=== PATIENT | male | born 1965 | race Caucasian/White ===

== ENCOUNTER 2016-12-07 04:46 | Inpatient (IN) | payer BC ==
[2016-12-07 05:54] LABS: BASOPHILS 0.1 % (0-2); EOSINOPHILS 0.7 % (0-7); HEMATOCRIT 32.2 % (42.0-54.0); HEMOGLOBIN 10.2 g/dL (13.5-17.5); IMMATURE GRANULOCYTES 0.2 % (0-5); LYMPHOCYTES 7.1 % (15-50); MCH 28.1 pg (26.0-34.0); MCHC 31.7 g/dL (31.0-37.0); MCV 88.7 fL (80.0-100.0); MEAN PLATELET VOLUME 9.4 fL (7.4-10.4); MONOCYTES 11.4 % (2-11); NEUTROPHILS 80.5 % (40-80); PLATELET COUNT 244 10x3/uL (130-400); RBC 3.63 10x6/uL (4.20-6.10); RDW 14.4 % (11.5-14.5); WBC 9.1 10x3/uL (4.8-10.8)
[2016-12-07 06:26] LABS: ALBUMIN 2.9 g/dL (3.4-5.0); ANION GAP 11.9 mmol/L (8-16); BILIRUBIN - TOTAL 0.7 mg/dL (0.2-1.3); CALCIUM 9.4 mg/dL (8.5-10.1); CARBON DIOXIDE 26.8 mmol/L (21.0-32.0); CREATININE - SERUM 1.1 mg/dL (0.6-1.3); POTASSIUM - SERUM 3.7 mmol/L (3.5-5.1); PROTEIN - SERUM 7.5 g/dL (6.4-8.2)
[2016-12-07 06:52] LABS: APPEARANCE CLOUDY (CLEAR); COLOR DK YELLOW (YELLOW); GLUCOSE NEGATIVE (NEGATIVE); KETONE NEGATIVE (NEGATIVE); NITRITE NEGATIVE (NEGATIVE); PROTEIN 2+ mg/dL (NEGATIVE); SPECIFIC GRAVITY 1.025 (1.005-1.020)
[2016-12-07 06:53] LABS: BILIRUBIN NEGATIVE (NEGATIVE); UROBILINOGEN NORMAL (NORMAL)
[2016-12-07 06:57] LABS: BACTERIA MODERATE /hpf (NONE SEEN); EPITHELIAL CELLS 0-5 /hpf (0-5); MUCUS <1+ /lpf (NONE SEEN); RED CELLS - URINE >50 /hpf (0-5); YEAST RARE /hpf (NONE SEEN)
--- NOTE | 2016-12-07 09:00 | NUR ---
ARRIVE TO ROOM VIA WHEELCHAIR. ALERT AND ORIENTED. AMBULATES TO BED GAIT STEADY. REPORTS QUITING SMOKING IN SEPTEMBER 2016. HAD STENT PLACED IN SCROTUM IN SEPTEMBER. MORPHINE HOME CARE PROVIDER STARTED PER ORDER. COMPLAINS OF FLANK PAIN. DENIES SOB. CONTINUE ADMISSION PROCESS. BED LOCKED AND LOW. CALL LIGHT IN REACH.
[2016-12-07] MEDS ORDERED: MORPHINE IMMEDI15 MG PO (09:04)
[2016-12-07] MEDS ORDERED: LEVAQUIN500 MG PO (09:04)
[2016-12-07] MEDS ORDERED: PERCOCET 5-3251 TAB PO (09:04)
[2016-12-07] MEDS ORDERED: HYDROCODONE-APA1 TAB PO (09:05)
[2016-12-07] MEDS ORDERED: ULTRAM50 MG PO (09:06)
[2016-12-07 11:47] VITALS: BP 135/87
[2016-12-07 12:55] VITALS: BP 143/87; BMI 25.5
--- NOTE | 2016-12-07 15:54 | NUR ---
ALERT AND ORIENTED X4. RESTING IN BED. AT BEDSIDE. EFRA CONSULTED PER FOR PORT PLACEMENT. [facility] CALLED FOR RECORDS TO BED FAXED. CONSENT FOR TRANSFER OF INFORMATION SIGNED. EXPRESSES NEED FOR SOMETHING TO RELAX. ATIVAN ORDERED 0.5mg Q 8HPRN IV. TABLE WORKER MORPHINE SWITCHED TO DILAUDID PER 'S ORDER. DENIES SOB. CONTINUE PLAN OF CARE. BED LOCKED AND LOW. CALL LIGHT IN REACH. TWO SIDERAILS UP. REFUSE SCDs. AMBULATORY. GAIT STEADY.
[2016-12-07 16:24] VITALS: BP 128/89
--- NOTE | 2016-12-07 17:14 | NUR ---
IN ROOM. PLAN TO PLACE INFUSAPORT 12/08/16.
[2016-12-07 18:09] LABS: % SATURATION 7 % (15-55); IRON 16 ug/dl (35-150); TOTAL IRON BIND CAPACITY 228 ug/dl (260-445); UNSAT IRON BIND CAPACITY 212 ug/dl (150-375)
--- NOTE | 2016-12-07 19:40 | NUR ---
CONSENTS SIGNED BY PT FOR POWER PORT PLACEMENT TO BE DONE BY DR BOLTON ON 12-08-16. CONSENTS WITTNESSED BY SECOND NURSE AND PLACED IN CHART.
[2016-12-07 20:46] VITALS: BP 126/85
--- NOTE | 2016-12-07 20:49 | NUR ---
ZOFRAN 4 MG GIVEN IV FOR C/O NAUSEA.
--- NOTE | 2016-12-07 22:34 | NUR ---
ATIVAN 0.5 MG GIVEN AT PT REQUEST TO ASSIST WITH REST.
[2016-12-08 00:46] VITALS: BP 142/88
--- NOTE | 2016-12-08 01:19 | NUR ---
ZOFRAN 4 MG GIVEN FOR C/O NAUSEA.
[2016-12-08 04:25] VITALS: BP 135/85; BP 141/77
--- NOTE | 2016-12-08 06:32 | NUR ---
PT RESTING IN BED WITH NO DISTRESS. CALL LIGHT IN REACH. CPOC.
[2016-12-08 08:04] VITALS: BP 136/82
[2016-12-08 10:00] VITALS: BMI 25.5
[2016-12-08 12:20] VITALS: BP 146/91
--- NOTE | 2016-12-08 12:27 | NUR ---
RETURN TO ROOM VIA BED FROM THE PROCEDURE. LT SUBCLAVIAN INFUSAPORT PLACED. ALREADY ACCESSED UPON ARRIVING TO ROOM. FAMILY AT BED SIDE. T-98.3, P-87, R-16, BP-146/91. RATES PAIN 12/07. RESTART IV FLUID AND TIE SAWYER DILAUDID ORDERED. CONTINUE PLAN OF CARE. BED LOCKED AND LOW. CALL LIGHT IN REACH. TWO SIDERAILS UP.
[2016-12-08 12:59] LABS: BASOPHILS 0.1 % (0-2); EOSINOPHILS 0.4 % (0-7); HEMATOCRIT 34.2 % (42.0-54.0); HEMOGLOBIN 10.8 g/dL (13.5-17.5); IMMATURE GRANULOCYTES 0.2 % (0-5); LYMPHOCYTES 9.4 % (15-50); MCH 28.2 pg (26.0-34.0); MCHC 31.6 g/dL (31.0-37.0); MCV 89.3 fL (80.0-100.0); MEAN PLATELET VOLUME 9.1 fL (7.4-10.4); MONOCYTES 12.1 % (2-11); NEUTROPHILS 77.8 % (40-80); PLATELET COUNT 200 10x3/uL (130-400); RBC 3.83 10x6/uL (4.20-6.10); WBC 8.1 10x3/uL (4.8-10.8)
--- NOTE | 2016-12-08 13:00 | NUR ---
REPORT GIVEN TO DAGO GARDNER TO RESUME PLAN OF CARE.
[2016-12-08 13:15] LABS: ALBUMIN 2.7 g/dL (3.4-5.0); ANION GAP 13.3 mmol/L (8-16); BILIRUBIN - TOTAL 1.2 mg/dL (0.2-1.3); CALCIUM 9.2 mg/dL (8.5-10.1); CARBON DIOXIDE 28.7 mmol/L (21.0-32.0); CREATININE - SERUM 1.1 mg/dL (0.6-1.3); PROTEIN - SERUM 7.5 g/dL (6.4-8.2)
--- NOTE | 2016-12-08 13:55 | NUR ---
PATIENT WANTS TO KEEP HIS NAUSEA AWAY, SO ZOFRAN IV PROVIDED. PATIENT IS AWAKE AND ALERT, HE IS JOKING, NO ISSUES. WILL GO FOR SCAN AROUND 1530.
[2016-12-08 15:31] VITALS: BP 147/93
--- NOTE | 2016-12-08 17:00 | NUR ---
NEW DILAUDID SYRINGE INFUSING NOW FOR PATIENT.
--- NOTE | 2016-12-08 18:15 | NUR ---
PATIENT ASKED "WHEN DID I HAVE THAT STOMACH MEDICINE LAST?" HE SAID HE JUST ATE AND HE'D LIKE TO HAVE MORE TO STAY ON TOP OF THE NAUSEA. WESTLEY ROJAS PROVIDED NOW SEE
[2016-12-08 19:00] VITALS: BP 151/90
--- NOTE | 2016-12-08 20:03 | NUR ---
PT AWAKE, ALERT, ORIENTED, C/O GREAT PAIN IN HIS BLADDER THAT RADIATES TO HIS BACK. PRN BOLUS OF DILAUDID GIVEN. PT DENIES ANY NAUSEA AT THIS TIME. PT TO CALL WITH ANY NEEDS. CONTINUE TO MONITOR CLOSELY. BED LOW, CALL LIGHT IN REACH, SIDE RAILS X 2, HOB 15 DEGREES. I HAVE ENCOURAGED PT TO USE A URINAL SO THAT WE CAN OBTAIN STRICT I & O'S. PT VERBALLY AGREED TO DO SO.
--- NOTE | 2016-12-08 23:54 | NUR ---
PT IS C/O CONSTIPATION, STATING IT HAS BEEN 3 DAYS OR LONGER SINCE HE HAS HAD A BM AND ASKING FOR A LAXATIVE. PT STATES EX-LAX IS THE ONLY THING THAT WORKS FOR HIM, AND STATES MIRALAX DOES NOT WORK AT ALL. I HAVE PAGED [employer] BUSHEL WORKER WEB DESIGNER, CARMEN RACHEL, FOR FURTHER ORDERS. PT ALSO JUST REQUESTED AND RECEIVED A PRN BOLUS OF DILAUDID FOR ABDOMINAL/BLADDER AND BACK PAIN. PT STATES IT IS ONLY SEVERE WHEN HE'S AMBULATING, BUT TOLERABLE AT REST. PT HAS JUST RECENTLY RETURNED TO BED AFTER TRYING TO HAVE A BM. NO OTHER NEEDS AT THIS TIME. WILL CONTINUE TO MONITOR CLOSELY.
[2016-12-09] VITALS: BP 156/100
--- NOTE | 2016-12-09 00:50 | NUR ---
PT RESTING COMFORTABLY, EYES CLOSED, RESPIRATIONS EVEN AND UNLABORED. CONTINUE TO MONITOR CLOSELY. WILL OFFER PRN SUPPOSITORIES WHEN PT IS AWAKE.
--- NOTE | 2016-12-09 02:38 | NUR ---
PT AWAKE, ALERT, SITTING IN CHAIR AT THIS TIME, REQUESTING A SPRITE AND HIS LAXATIVE. I EXPLAINED TO PT THAT DULCOLAX SUPPOSITORIES HAVE BEEN ORDERED. PT HAS DECIDED TO WAIT ON THE SUPPS, BUT WILL LET ME KNOW IF AND WHEN HE DOES DECIDE TO USE THEM. PT DENIES ANY OTHER NEEDS AT THIS TIME. WILL CONTINUE TO MONITOR CLOSELY.
[2016-12-09 04:00] VITALS: BP 147/100
[2016-12-09 05:23] LABS: BASOPHILS 0.1 % (0-2); EOSINOPHILS 0.3 % (0-7); HEMATOCRIT 31.5 % (42.0-54.0); HEMOGLOBIN 10.1 g/dL (13.5-17.5); IMMATURE GRANULOCYTES 0.2 % (0-5); LYMPHOCYTES 6.2 % (15-50); MCH 28.1 pg (26.0-34.0); MCHC 32.1 g/dL (31.0-37.0); MCV 87.7 fL (80.0-100.0); NEUTROPHILS 83.2 % (40-80); PLATELET COUNT 194 10x3/uL (130-400); RBC 3.59 10x6/uL (4.20-6.10); WBC 9.6 10x3/uL (4.8-10.8)
[2016-12-09 06:01] LABS: ALBUMIN 2.5 g/dL (3.4-5.0); ALKALINE PHOSPHATASE 238 U/L (46-116); ALT (SGPT) 36 U/L (10-68); BILIRUBIN - TOTAL 1.01 mg/dL (0.2-1.3); CALC OSMOLALITY 265 mosm/kg (275-300); CARBON DIOXIDE 27.4 mmol/L (21.0-32.0); CHLORIDE - SERUM 98 mmol/L (98-107); CREATININE - SERUM 0.9 mg/dL (0.6-1.3); GLUCOSE 105 mg/dL (74-106); POTASSIUM - SERUM 3.6 mmol/L (3.5-5.1); PROTEIN - SERUM 7.5 g/dL (6.4-8.2); SODIUM 133 mmol/L (136-145); UREA NITROGEN 13 mg/dL (7-18); eGFR NON AFRICAN AMERICAN > 90 mL/min (90-120)
--- NOTE | 2016-12-09 07:16 | NUR ---
PT SITTING UP IN CHAIR C/O NAUSEA. JEF LOZA HAS GOTTEN WESTLEY LUQUE ORDER. CALLED PHARMACY AND ASKED THEM TO BRING IT UP JANUSZ FOR PT. WILL CONT TO MONITOR
[2016-12-09 08:00] VITALS: BP 133/90
--- NOTE | 2016-12-09 09:18 | NUR ---
PT REQUESTED EGG CRATE MATTRESS, PROVIDED COMPLETE BED CHANGE. PT IS IN THE SHOWER. WILL CHANGE CVL DSNG WHEN PT COMES OUT.
--- NOTE | 2016-12-09 09:35 | NUR ---
CHANGED PT DRSNG TO LEFT CHEST IP. STERILE TECHNIQUE INITIATED. SWAB CAPS INTACT DSNG ADHERED TO SKIN. BIOPATCH IN PLACE. PT DENIES ANY MORE NEEDS AT THIS TIME WILL CONT TO MONITOR
--- NOTE | 2016-12-09 10:03 | NUR ---
DC PIV, CATH TIP INTACT.
--- NOTE | 2016-12-09 11:21 | NUR ---
PT IS STILL WITH N/V. ON ZOFRAN DRIP. PAGED CARMEN TO ASK IF OK TO GIVE MORE ZOFRAN IVP OR DC THAT ORDER AND DO SOMETHING ELSE??
[2016-12-09 12:00] VITALS: BP 150/88
--- NOTE | 2016-12-09 14:00 | OP ---
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 POSTOPERATIVE DIAGNOSIS: Transitional cell cancer in need of IV access for chemotherapy. PROCEDURES: 1. Placement of left infraclavicular PowerPort under fluoroscopic guidance. 2. Immediate surgeon interpretation of the fluoroscopic images. SURGEON: Henrry Bolton MD ROUTE AIDE: None. BLOOD LOSS: Minimal. ANESTHESIA: General. COMPLICATIONS: None. The risks, possible complications, and alternatives to procedure were explained to the patient. He elected to proceed. OPERATIVE COURSE: The patient was conveyed to the operating room electively on 12/08/2016. General anesthesia was induced by the anesthesia staff. The patient's chest were sterilely prepped and draped. A transverse incision was accomplished inferior to the left clavicle. I dissected down to the deltopectoral groove. I have created a subcutaneous pocket in a caudad direction. I dissected in the deltopectoral groove. A generous cephalic vein was identified. Ties were placed on the cephalic vein laterally. Loose ties were placed on the cephalic vein medially. A small venotomy was accomplished between the ties. I advanced the PowerPort catheter through the venotomy. It was advanced to the cavoatrial junction and this was witnessed under fluoroscopy. I then shortened the catheter. It was attached to the PowerPort. The locking device was firmly engaged. The port was then placed in subcutaneous pocket and through 3-point fixation, 3-0 Prolenes were used to suture the port to the underlying pectoralis fascia. I irrigated in the port pocket with normal saline. There was no bleeding. The subdermis was approximated with interrupted 3-0 Vicryls. The skin was approximated with a running intracuticular 4-0 Vicryl. I then accessed the port percutaneously. It accessed easily. It flushed easily and aspirated dark, nonpulsatile blood. A stat portable chest x-ray is going be pending in the recovery room. The site was sterilely dressed. TRANSINT:[id number] Voice Confirmation ID: [id number] DOCUMENT ID: [id number] OPERATIVE REPORT [id number] HIRAL MAGALLON ROBERT MD at 1400 CC: [id number] DICTATION DATE: 12/08/16 1135 FOREIGN LANGUAGE INTERPRETER: 12/08/16 1206 ADM IN [place] [id number] [place] [id number]
--- NOTE | 2016-12-09 14:00 | CN ---
PATIENT NAME:HIRAL MAGALLON MEDICAL RECORD: [id number] : 63 LOCATION:D. D.2109 ADMIT DATE: 12/07/16 ACCOUNT: [id number] CONSULTING PHYSICIAN: EDDIE BOLTON MD REFERRING PHYSICIAN: JIHAN SHORT MD DATE OF CONSULTATION: 12/07/2016 CHIEF COMPLAINT: Cancer. 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 The patient has undergone a workup that [facility] as well as [facility]. The urologic oncology team at [facility] felt that the tumor was unresectable due to its multifocality. Symptoms came upon gradually. They are difficult to characterize. The patient developed hematuria since September 2016. He has had weight loss. He is a smoker. He stopped smoking few days ago. This is a consultation note addendum. For the typed portion of the consult note, please see the chart. This would include the past medical, surgical history, allergies, social history, as well as current medications and also family history. REVIEW OF SYSTEMS: No nausea, no vomiting. No fever, no chills. No chest pain, no shortness of breath. The review of systems is negative other than as is described above. PHYSICAL EXAMINATION: GENERAL: The patient does appear acutely ill. Also appears chronically ill. VITAL SIGNS: Reviewed. EARS: External ears appear normal. EYES: Extraocular movements are intact. NECK: Trachea is midline. CHEST: No intercostal retractions. PULMONARY: Nonlabored, no stridor. ABDOMEN: Nontender. EXTREMITIES: No peripheral cyanosis. INTEGUMENT: No rash, no ulcerations. PSYCHIATRIC: Normal affect. NEUROLOGIC: Nonfocal, no lethargy. The patient answers questions appropriately, moves all extremities well. BACK: No thoracic kyphosis. LYMPHATICS: No lymphangitic streaking of the exposed extremities. IMPRESSION: Transitional cell carcinoma, in need of IV access for chemotherapy. PLAN: PowerPort placement. The risks, possible complications and alternatives to the procedure were explained to the patient. He elects to proceed. The discussion specifically included, but was not limited to, bleeding requiring emergency reoperation, slippage of the port, breakage of the port and the fact that port could clot off or become infected. TRANSINT:[id number] Voice Confirmation ID: [id number] DOCUMENT ID: [id number] CONSULT REPORT [id number] SANTYDOUGHIRAL ROBERT MD at 1400 CC: [id number] DICTATION DATE: 12/08/16 1133 POSTIE: 12/08/16 1159 ADM IN [place] [id number] [place] [id number]
[2016-12-09 16:00] VITALS: BP 139/84
--- NOTE | 2016-12-09 17:38 | NUR ---
PT SITTING UP IN BED DENIES NEEDS, FAMILY AT BEDSIDE
--- NOTE | 2016-12-09 19:54 | NUR ---
PT BACK FROM HIS MRI, AWAKE, ALERT, ORIENTED, LYING IN BED. I HAVE RESTARTED ALL HIS IV'S INFUSING INTO HIS LEFT CHEST PORT. PT STATES HIS NAUSEA IS BETTER CONTROLLED WITH THE PHENERGAN PRN ALONG WITH HIS ZOFRAN GTT. PT IS GOING TO TRY AND EAT SOME GRAPES. I DID TEACHING ON THE IMPORTANCE OF CALORIC INTAKE AND STAYING HYDRATED, WHICH WE ARE MANAGING WITH HIS NS INFUSION. PT STATES THE INCREASE OF HIS DILAUDID FOOD PROCESSING SCIENTIST IS ALSO HELPING WITH HIS INTRACTABLE PAIN. IS AT BEDSIDE. PT/ TO CALL WITH ANY NEEDS AND CHANGES.
[2016-12-09 20:00] VITALS: BP 134/91
[2016-12-10] VITALS (14 sets, daily range): BP systolic 112–142; BP diastolic 62–93
--- NOTE | 2016-12-10 01:14 | NUR ---
PT RESTING COMFORTABLY, EYES CLOSED, RESPIRATIONS EVEN AND UNLABORED. CONTINUE TO MONITOR CLOSELY. BED LOW, CALL LIGHT IN REACH, SIDE RAILS X 2, HOB 20 DEGREES.
--- NOTE | 2016-12-10 02:45 | NUR ---
PT RESTING COMFORTABLY, RESPIRATIONS EVEN AND UNLABORED. MILD SNORING. CONTINUE TO MONITOR CLOSELY.
--- NOTE | 2016-12-10 05:20 | NUR ---
PT RESTING COMFORTABLY, EASILY ROUSABLE TO VERBAL STIMULI. PT DENIES NAUSEA AT THIS TIME, STATES THE PHENERGAN HAS HELPED, WELL INCREASING HIS PAIN MEDICATION. PT DENIES ANY NEEDS, REMAINS NPO SINCE MIDNIGHT. CONTINUE TO MONITOR CLOSELY. BED LOW, CALL LIGHT IN REACH, SIDE RAILS X 2, HOB 30 DEGREES. PT DOES HAVE AN EGG CRATE OVERLAY ON HIS MATTRESS.
[2016-12-10 06:07] LABS: BASOPHILS 0.4 % (0-2); EOSINOPHILS 0.8 % (0-7); HEMOGLOBIN 9.9 g/dL (13.5-17.5); IMMATURE GRANULOCYTES 0.1 % (0-5); LYMPHOCYTES 10.2 % (15-50); MCH 28.4 pg (26.0-34.0); MCHC 31.9 g/dL (31.0-37.0); MCV 88.8 fL (80.0-100.0); MEAN PLATELET VOLUME 9.7 fL (7.4-10.4); MONOCYTES 15.1 % (2-11); NEUTROPHILS 73.4 % (40-80); RBC 3.49 10x6/uL (4.20-6.10); RDW 14.1 % (11.5-14.5); WBC 7.3 10x3/uL (4.8-10.8)
[2016-12-10 06:10] LABS: PLATELET COUNT 234 10x3/uL (130-400)
[2016-12-10 06:20] LABS: APTT 37.7 SECONDS (22.8-39.4); INR 1.04 (0.85-1.17); PROTIME 13.4 SECONDS (11.6-15.0)
[2016-12-10 06:30] LABS: ALBUMIN 2.3 g/dL (3.4-5.0); ALKALINE PHOSPHATASE 207 U/L (46-116); ALT (SGPT) 30 U/L (10-68); CALC OSMOLALITY 271 mosm/kg (275-300); CALCIUM 8.9 mg/dL (8.5-10.1); CHLORIDE - SERUM 103 mmol/L (98-107); CREATININE - SERUM 0.9 mg/dL (0.6-1.3); GLUCOSE 85 mg/dL (74-106); POTASSIUM - SERUM 3.6 mmol/L (3.5-5.1); PROTEIN - SERUM 6.9 g/dL (6.4-8.2); SODIUM 137 mmol/L (136-145); UREA NITROGEN 10 mg/dL (7-18); eGFR NON AFRICAN AMERICAN > 90 mL/min (90-120)
--- NOTE | 2016-12-10 07:16 | NUR ---
PT SITTING UP IN BED DENIES NEEDS STATES "I FEEL GREAT! THIS NEW PAIN MEDICATION AND NAUSEA MEDICATION REALLY HELPS!" PT DENIES NEEDS. AT BEDSIDE WILL CONT TO MONITOR
--- NOTE | 2016-12-10 09:00 | NUR ---
SPOKE WITH DR GRAHAM. SHE ORDERED STAT CT SCANS OF ABDOMEN CHEST AND PELVIS WITH CONTRAST AND TO GIVE MUCOMYST BEFORE. DONE. SPOKE WITH HANY IYER, SHE SAID THAT DR CRAIN WANTS THESE SCANS FIRST BEFORE HE DOES THE BONE BIOPSY. TO HOLD PT NPO UNTIL FURTHER NOTICE. UPDATED PT AND FAMILY.
--- NOTE | 2016-12-10 09:11 | NUR ---
PT TO CT
--- NOTE | 2016-12-10 10:26 | NUR ---
TALKED WITH PHARMACY ELIE ABOUT PHENGRAN. I GOT ORDER FROM CARMEN KIRKPATRICK YESTERDAY OK TO GIVE THIS DRUG IV R/T PT HAVING A CENTRAL ACCESS LONG DILUTED. THIS MED AUTOMATICALLY GOT REFLEXED TO IM. SPOKE WITH ELIE SHE SAID IT WAS OK TO CHANGE BACK TO IV LONG DILUTED- THEY WERENT AWARE PT HAD CENTRAL ACCESS. DONE.
--- NOTE | 2016-12-10 10:52 | NUR ---
Nutrition Follow Up: Chart reviewed. Pt is NPO this am. Pt with N/V but this is improving per chart. Pt is eating 29% meal avg on a regular diet. Wt stable. Meds and labs reviewed. Rec continue regular diet as tolerated. Will honor food preferences. RD following.
--- NOTE | 2016-12-10 11:51 | NUR ---
PT REFUSED HOUSEKEEPING AT THIS TIME
--- NOTE | 2016-12-10 14:36 | NUR ---
[facility] and said she was going to put in orders for biopsy of lymph nodes about 1100. no orders yet... have called IR with no answer x4 times in the past 1 hour. pt and pt family is getting restless and angry that it is taking so long. will cont to try and keep calling
--- NOTE | 2016-12-10 15:06 | NUR ---
Patient Name: HIRAL MAGALLON Admission Status: ER Accout number: [id number] Admission Date: 12-07-2016 : 1965 Admission Diagnosis:MALIGNANT NEOPLASM OF LEFT KIDNEY, EXCEPT RENAL PELVIS Attending: JIHAN MC Current LOS: 3 Anticipated DC Date: Planned Disposition: Home Primary Insurance: Shahab P. Tabatabai, Broker OUT OF STATE Discharge Planning Comments: * Is the patient Alert and Oriented? Yes 0 * How many steps to enter\exit or inside your home? 1 0 * PCP DR. GRAHAM 0 * Pharmacy [facility] 0 * Preadmission Environment Home with Family 0 * ADLs Independent 0 * Equipment None 0 * Other Equipment NO MEDICAL EQUIPMENT PROVIDER PREFERENCE 0 * List name and contact numbers for known caregivers / representatives who currently or will assist patient after discharge: YOJANA MAGALLON, SPOUSE, 0 * Community resources currently utilized None 0 * Please name any agencies selected above. NONE 0 * Additional services required to return to the preadmission environment? No 0 * Can the patient safely return to the preadmission environment? Yes 0 * Has this patient been hospitalized within the prior 30 days at any hospital? No 0 CM MET WITH PT AND SPOUSE IN ROOM TO DISCUSS DISCHARGE PLANNING AND NEEDS. PT REPORTS LIVING AT HOME INDEPENDENTLY WITH SPOUSE. PT HAS NO MEDICAL EQUIPMENT AND NO OUTSIDE SERVICES ASSISTING IN THE HOME. CM DISCUSSED AVAILABILITY OF HOME HEALTH, REHAB SERVICES AND MEDICAL EQUIPMENT. PT DENIES DISCHARGE NEEDS AT THIS TIME, REPORTS PLAN TO RETURN HOME WITH SPOUSE, REPORTS HIS SPOUSE WILL PICK HIM UP FOR DISCHARGE HOME. PT REPORTS PLAN TO DISCHARGE HOME WITH SPOUSE, NO ANTICIPATED DISCHARGE NEEDS. CM TO FOLLOW AND ASSIST IF NEEDED. [employer] Professional: Darryl Ray
--- NOTE | 2016-12-10 15:30 | NUR ---
STILL WAITING FOR IR TO GET PT FOR LYMPH NODE BIOPSY. PT DENIES ANY NAUSEA OR PAIN AT THIS TIME. SAYS "MEDS ARE WORKING". CLAIMS HE DOESNT WANT TO MISS HIS NEXT PHEN. DOSE
--- NOTE | 2016-12-10 16:01 | NUR ---
PT TO IR FOR PROCEDURE
--- NOTE | 2016-12-10 17:41 | NUR ---
PT BACK FROM PROCEDURE ALERT AND ORIENTED DENIES NEEDS OTHER THAN PHEN. WILL GIVE. FAMILY AT BEDSIDE.
--- NOTE | 2016-12-10 20:56 | NUR ---
PATIENT IS ALERT WATCHING TV, SPOUSE IS AT BEDSIDE. CALL LIGHT IN REACH, WILL CONTINUE TO MONITOR.
--- NOTE | 2016-12-10 22:18 | NUR ---
PT AWAKE, ALERT, ORIENTED, ASKING FOR FRUIT FOR A SNACK. PT STATES HIS PAIN IS AT A 7 WITH THE DILAUDID BLEACH BOILER PULLER, BUT HIS NAUSEA IS BETTER CONTROLLED AT THIS TIME AND IS GETTING HIS APPETITE BACK. I DID GET PT AN ORANGE POPSICLE PER HIS REQUEST. PT IS ALSO ASKING FOR A BLT FOR BREAKFAST, SO I DID A ONE TIME DIET REQUEST. NO OTHER NEEDS AT THIS TIME. WILL CONTINUE TO MONITOR PT CLOSELY. BED LOW, CALL LIGHT IN REACH, SIDE RAILS X 2, HOB 30 DEGREES, EGG CRATE OVERLAY MATTRESS TOPPER IN PLACE.
[2016-12-11] VITALS: BP 126/63
[2016-12-11 04:00] VITALS: BP 130/86
[2016-12-11 04:59] LABS: BASOPHILS 0.2 % (0-2); EOSINOPHILS 1.2 % (0-7); HEMATOCRIT 30.4 % (42.0-54.0); HEMOGLOBIN 9.4 g/dL (13.5-17.5); IMMATURE GRANULOCYTES 0.2 % (0-5); LYMPHOCYTES 10.4 % (15-50); MCH 27.6 pg (26.0-34.0); MCHC 30.9 g/dL (31.0-37.0); MCV 89.1 fL (80.0-100.0); MEAN PLATELET VOLUME 9.4 fL (7.4-10.4); MONOCYTES 18.4 % (2-11); NEUTROPHILS 69.6 % (40-80); PLATELET COUNT 216 10x3/uL (130-400); RBC 3.41 10x6/uL (4.20-6.10); RDW 14.3 % (11.5-14.5)
[2016-12-11 05:22] LABS: ALBUMIN 2.2 g/dL (3.4-5.0); BILIRUBIN - TOTAL 0.53 mg/dL (0.2-1.3); CALCIUM 8.9 mg/dL (8.5-10.1); CARBON DIOXIDE 30.6 mmol/L (21.0-32.0); CREATININE - SERUM 1.1 mg/dL (0.6-1.3); POTASSIUM - SERUM 3.6 mmol/L (3.5-5.1); PROTEIN - SERUM 6.8 g/dL (6.4-8.2)
--- NOTE | 2016-12-11 07:00 | NUR ---
RECEIVED REPORT. ASSUMED CARE OF PATIENT. CALL LIGHT WITHIN REACH. PATIENT SITTING UP IN BED. PATIENT REQUESTING RUFINO CRACKERS AND ICE AT THIS TIME. RESP EVEN AND UNLABORED. IV FLUIDS AND JAVA SQL DEVELOPER INFUSING ORDERED. 5ML REMAINING IN JAVA SQL DEVELOPER SYRINGE. NO ACUTE DISTRESS.
[2016-12-11 08:00] VITALS: BP 123/80
--- NOTE | 2016-12-11 10:45 | NUR ---
PATIENT OOB TO WHEELCHAIR TO VISIT WITH FAMILY IN WAITING AREA NEAR WIRELESS SALES EXPERT. NO DISTRESS UPON LEAVING UNIT.
--- NOTE | 2016-12-11 11:06 | NUR ---
FENTENYL PATCH APPLIED AT THIS TIME. TERMINAL SYSTEM OPERATOR TO BE REMOVED AT 1400 PER 'S ORDERS. FERRELICIT NOT ON UNIT AT THIS TIME FOR ADMINISTRATION. NO DISTRESS.
--- NOTE | 2016-12-11 12:54 | NUR ---
STILL WAITING FOR FERRELICIT TO BE BROUGHT TO UNIT.
--- NOTE | 2016-12-11 13:56 | NUR ---
FERRELICIT TO UNIT AT 1350. PATIENT REMAINS OFF UNIT WITH FAMILY IN WAITING AREA NEAR CARDIAC BUFF WHEEL FABRICATOR. NO DISTRESS. HAVE CHECKED ON PATIENT MULTIPLE TIMES TO ENSURE PATIENT SAFETY.
--- NOTE | 2016-12-11 14:28 | NUR ---
STAFF DEVELOPMENT MANAGER PUMP REMOVED AND REMAINING DILAUDID WASTED IN PYSIX WITH ANOTHER RN. PATIENT SITTING IN WHEELCHAIR VISITING WITH FAMILY. NO DISTRESS.
--- NOTE | 2016-12-11 15:30 | NUR ---
MEDICATED FOR PAIN AT THIS TIME.
[2016-12-11 15:59] VITALS: BP 141/95
--- NOTE | 2016-12-11 16:34 | NUR ---
PAGED DUE TO PATIENTS PAIN IS NOT CONTROLLED. ONLY BEEN ONE HOUR SINCE ORAL DILAUDID STARTED AND PATIENT PAIN IS AT A CONSTANT 7. FENTENYL PATCH REMAINS INTACT. RECEIVED NEW ORDERS TO GIVE DILAUDID 2MG EVERY 2 HOURS INSTEAD OF EVERY 4. THANKED .
--- NOTE | 2016-12-11 17:22 | NUR ---
MEDICATED FOR PAIN AT THIS TIME. NO DISTRESS.
--- NOTE | 2016-12-11 18:33 | NUR ---
RESTING IN BED. FAMILY AT BEDSIDE. NO DISTRESS.
--- NOTE | 2016-12-11 19:40 | NUR ---
DIALOUDID 2 MG TAB GIVEN AT THIS TIME FOR C/O PAIN. AT BED SIDE, BED LOW, CL IN REACH.
--- NOTE | 2016-12-11 19:45 | NUR ---
ATIVAN 0.5 MG GIVEN FOR S/S AGITATION. WILL CONT TO MONITOR.
[2016-12-11 20:00] VITALS: BP 174/97
--- NOTE | 2016-12-11 21:06 | NUR ---
DILAUDID 2 MG GIVEN FOR C/O PAIN TO ABD. RATES PAIN AT A 7 ON PAIN SCALE. REPOSITIONED IN BED FOR COMFORT. WILL CONT TO MONITOR.
--- NOTE | 2016-12-11 23:21 | NUR ---
DILAUDID 1 TAB GIVEN AT PT REQUEST FOR C/O PAIN. RATES PAIN AT A 7 ON PAIN SCALE. WILL CONT TO MONITOR.
[2016-12-12] VITALS: BP 166/88
--- NOTE | 2016-12-12 01:16 | NUR ---
PT UP TO SHOWER AND BACK TO BED WITH ASSIST. LINENS CAHNGED. DILAUDID 2 MG TAB GIVEN FOR C/O PAIN. WILL CONT TO MONITOR.
[2016-12-12 04:00] VITALS: BP 173/90
--- NOTE | 2016-12-12 04:15 | NUR ---
AM LAB DRAWN VIA INFUSAPORT, TUBES GIVEN TO LANDSCAPING AND GROUNDSKEEPING LABORER KASEY.
[2016-12-12 04:47] LABS: BASOPHILS 0.1 % (0-2); EOSINOPHILS 0.3 % (0-7); HEMATOCRIT 28.9 % (42.0-54.0); HEMOGLOBIN 9.2 g/dL (13.5-17.5); IMMATURE GRANULOCYTES 0.1 % (0-5); LYMPHOCYTES 5.9 % (15-50); MCH 27.9 pg (26.0-34.0); MCHC 31.8 g/dL (31.0-37.0); MCV 87.6 fL (80.0-100.0); MEAN PLATELET VOLUME 9.7 fL (7.4-10.4); MONOCYTES 12.1 % (2-11); NEUTROPHILS 81.5 % (40-80); PLATELET COUNT 224 10x3/uL (130-400); RDW 13.9 % (11.5-14.5); WBC 6.8 10x3/uL (4.8-10.8)
[2016-12-12 05:10] LABS: ALBUMIN 2.2 g/dL (3.4-5.0); ALKALINE PHOSPHATASE 244 U/L (46-116); ALT (SGPT) 34 U/L (10-68); CALC OSMOLALITY 272 mosm/kg (275-300); CALCIUM 8.8 mg/dL (8.5-10.1); CARBON DIOXIDE 28.6 mmol/L (21.0-32.0); CHLORIDE - SERUM 102 mmol/L (98-107); CREATININE - SERUM 0.9 mg/dL (0.6-1.3); GLUCOSE 107 mg/dL (74-106); POTASSIUM - SERUM 3.3 mmol/L (3.5-5.1); PROTEIN - SERUM 6.5 g/dL (6.4-8.2); SODIUM 137 mmol/L (136-145); UREA NITROGEN 10 mg/dL (7-18); eGFR NON AFRICAN AMERICAN > 90 mL/min (90-120)
--- NOTE | 2016-12-12 07:00 | NUR ---
RECEIVED REPORT. ASSUMED CARE OF PATIENT. RESTING IN BED WITH EYES CLOSED. RESP EVEN BUT SLIGHT SHALLOW. AROUSED BY VERBAL STIMULI. CALL LIGHT WITHIN REACH. ALERT/ORIENTED. AT BEDSIDE.
--- NOTE | 2016-12-12 07:54 | NUR ---
0730 PATIENTS STATES SHE WANTS TO KNOW HOW TO MAKE PATIENT DNR. SHE STATES THE CANCER SEEMS TO BE SPREADING QUICKLY AND THERE ARE NOT ALOT OF OPTIONS LEFT FOR PATIENT AT THIS TIME AND ALL THEY HAVE ASKED FOR FROM THE PHYSICIANS IS TO NOT LET HIM BE IN PAIN. INFORMED THIS DATABASE COORDINATOR WOULD SPEAK TO PHYSICIANS THIS AM SO THEY CAN SPEAK TO PATIENT AND CHANGE CODE STATUS IF ACTIONS ARE WARRANTED. THANKED THIS DATABASE COORDINATOR.
[2016-12-12 08:00] VITALS: BP 137/81
--- NOTE | 2016-12-12 09:10 | NUR ---
MEDICATED FOR PAIN AT THIS TIME. KPAD ALSO APPLIED TO ABDOMEN AT THIS TIME FOR COMFORT AND PAIN CONTROL. REMAINS AT BEDSIDE. NO DISTRESS.
--- NOTE | 2016-12-12 10:01 | NUR ---
CALL PLACED TO PHARMACY TO HAVE FERRLICIT INFUSION BROUGHT TO FLOOR.
--- NOTE | 2016-12-12 12:01 | NUR ---
MEDICATED FOR PAIN AT THIS TIME. ENCOURAGED PATIENT TO NOT LET PAIN GET HIGH BEFORE ASKING FOR PAIN MEDICATION PAIN IS HARD TO BRING DOWN.
--- NOTE | 2016-12-12 12:43 | NUR ---
PATIENT RESTING IN BED. FAMILY AND FRIENDS SURROUNDING BED. PATIENT VERY EASILY FALLS ASLEEP DURING CONVERSATIONS. PATIENT STATES DON'T FORGET ABOUT THE PAIN MEDICATION. PAIN MEDICATION AVAILABLE AT 1400. INFORMED PATIENT WILL OFFER PAIN MEDICATION. PATIENT STATED HE THINKS WE NEED TO INCREASE THE DOSAGE, THIS AUTOMOBILE SERVICE STATION ATTENDANT DID NOT AGREE WITH PATIENT HE SLEPT WELL WITH NO PAIN MEDICATION FROM 315 TO 0900. NO DISTRESS. CALL LIGHT WITHIN REACH.
--- NOTE | 2016-12-12 13:47 | NUR ---
K+ SUPPLEMENT ADMINISTERED AT THIS TIME.
--- NOTE | 2016-12-12 14:04 | NUR ---
MEDICATED FOR PAIN AT THIS TIME. NO DISTRESS.
[2016-12-12 16:00] VITALS: BP 152/92
--- NOTE | 2016-12-12 16:20 | NUR ---
MEDICATED FOR PAIN AT THIS TIME. NO DISTRESS. FAMILY AT BEDSIDE. CALL LIGHT WITHIN REACH.
--- NOTE | 2016-12-12 18:31 | NUR ---
MEDICATED FOR PAIN AT THIS TIME. NO DISTRESS. CALL LIGHT WITHIN REACH. IV FLUIDS INFUSING ORDERED. KPAD TO ABDOMEN FOR COMFORT AND PAIN CONTROL.
--- NOTE | 2016-12-12 19:45 | NUR ---
RESUMED CARE OF PT, LYING IN BED RESPIRATIONS EVEN AND UNLABORED ON ROOM AIR. LEFT INFUSAPORT INFUSING NS @ 100 AND ZOFRAN @ 4.7. KPAD TO ABDOMEN. REQUESTS PAIN PILL FOR ABDOMINAL PAIN. CALL LIGHT IN REACH. SEE NURSE ASSESSMENT. WILL CONTINUE TO MONITOR.
[2016-12-13] VITALS: BP 168/102; BP 177/108
--- NOTE | 2016-12-13 00:18 | NUR ---
LYING IN BED WITH EYES CLOSED, RESTING COMFORTABLLY. CALL LIGHT IN REACH.
--- NOTE | 2016-12-13 03:05 | NUR ---
DILAUDID 2MG PO FOR ABDOMINAL PAIN 9:10. WATER FILLED TO KPAD AND REAPPLIED TO ABDOMEN.
--- NOTE | 2016-12-13 05:12 | NUR ---
AM LAB OBTAINED FROM [facility].
[2016-12-13 06:15] LABS: BASOPHILS 0.1 % (0-2); EOSINOPHILS 1.2 % (0-7); HEMATOCRIT 29.4 % (42.0-54.0); HEMOGLOBIN 9.3 g/dL (13.5-17.5); IMMATURE GRANULOCYTES 0.1 % (0-5); LYMPHOCYTES 7.4 % (15-50); MCH 27.9 pg (26.0-34.0); MCHC 31.6 g/dL (31.0-37.0); MCV 88.3 fL (80.0-100.0); MEAN PLATELET VOLUME 9.8 fL (7.4-10.4); MONOCYTES 12.1 % (2-11); NEUTROPHILS 79.1 % (40-80); PLATELET COUNT 237 10x3/uL (130-400); RBC 3.33 10x6/uL (4.20-6.10); WBC 6.8 10x3/uL (4.8-10.8)
--- NOTE | 2016-12-13 06:16 | NUR ---
NO CHANGES FROM PREVIOUS ASSESSMENT, RESTING COMFORTABLLY. AT BEDSIDE
[2016-12-13 06:36] LABS: ALBUMIN 2.1 g/dL (3.4-5.0); ALKALINE PHOSPHATASE 243 U/L (46-116); ALT (SGPT) 28 U/L (10-68); BILIRUBIN - TOTAL 0.86 mg/dL (0.2-1.3); CALC OSMOLALITY 267 mosm/kg (275-300); CALCIUM 8.7 mg/dL (8.5-10.1); CARBON DIOXIDE 29.5 mmol/L (21.0-32.0); CHLORIDE - SERUM 99 mmol/L (98-107); CREATININE - SERUM 0.9 mg/dL (0.6-1.3); GLUCOSE 93 mg/dL (74-106); POTASSIUM - SERUM 3.3 mmol/L (3.5-5.1); PROTEIN - SERUM 6.6 g/dL (6.4-8.2); SODIUM 135 mmol/L (136-145); UREA NITROGEN 8 mg/dL (7-18); eGFR NON AFRICAN AMERICAN > 90 mL/min (90-120)
[2016-12-13 07:03] VITALS: BP 168/101
--- NOTE | 2016-12-13 07:05 | NUR ---
AM ROUNDING DONE WITH AT BEDSIDE. PATIENT APPEARS TO BE ALSEEP, RESP ARE EVEN AND NON LABORED. BILATERAL SCD'S ARE IN USE. NS INFUSING AT 100 CC/HR TO LEFT IP. ON ROOM AIR. IN REPORT, PATIENT IS DNR CODE STATUS. WILL MONITOR.
[2016-12-13 08:05] VITALS: BP 158/99
--- NOTE | 2016-12-13 09:41 | NUR ---
COMPLAINTS OF PAIN "ALL OVER". DILAUDID 2 MG GIVEN PER REQUEST.
[2016-12-13 11:47] VITALS: BP 151/103
--- NOTE | 2016-12-13 12:04 | NUR ---
PATIENT TO COMPLAIN OF STILL NOT HAVING A BM. WAS TOLD IN REPORT THAT MAG CITRATE WAS GIVEN LAST NIGHT. INFORMED PATIENT THAT I CAN GIVE HIM A DULCOLOX SUPP. HE STATES THAT HE WILL ASK FOR IT IN A BIT HE HAS A ROOM FULL OF COMPANY.
--- NOTE | 2016-12-13 14:20 | NUR ---
COMPLAINTS OF PAIN 8/10 "ALL OVER" AND NAUSEA. DILAUDID 2 MG GIVEN ALONG WITH IV PHNERGAN PAST DILUTION OF 7 CC NS.
[2016-12-13 15:42] VITALS: BP 144/97
--- NOTE | 2016-12-13 17:51 | NUR ---
COMPLAINTS OF PAIN, DILAUDID GIVEN PER REQUEST. AT BEDSIDE. WILL CONTINUE TO MONIOTR.
[2016-12-13 19:00] VITALS: BP 152/95
--- NOTE | 2016-12-13 20:15 | NUR ---
PT RESTING COMFORTABLY, EASILY ROUSABLE TO VERBAL STIMULI, ASKED FOR SOME OF HIS SNACKS THAT HIS HAS PROVIDED, STATES HIS PAIN IN CONTROLLED WITH THE FENTANYL PATCH, DENIES NAUSEA AND ANY OTHER NEEDS AT THIS TIME. CONTINUE TO MONITOR CLOSELY.
--- NOTE | 2016-12-13 21:48 | NUR ---
PT RESTING COMFORTABLY, DENIES ANY NEEDS. CONTINUE TO MONITOR CLOSELY.
--- NOTE | 2016-12-13 23:51 | NUR ---
PT IS C/O INCREASED AND UNBEARABLE PAIN/CRAMPING IN HIS ABDOMEN. K-PAD IS IN PLACE, BUT I DID GIVE PT HIS PRN DILAUDID, TYLENOL, AND PHENERGAN. I ALSO OFFERED THE DULCOLAX SUPP, HOWEVER PT WANTED TO TRY AND REST FIRST, BUT WILL TAKE IT LATER. PT IS TEARFUL, BUT EASILY CONSOLED AT THIS TIME. WILL CONTINUE TO MONITOR PT CLOSELY.
[2016-12-14] VITALS: BP 177/108
[2016-12-14 04:00] VITALS: BP 147/94
--- NOTE | 2016-12-14 04:22 | NUR ---
PT RESTING COMFORTABLY, EYES CLOSED, RESPIRATIONS EVEN AND UNLABORED. PT IS EASILY ROUSABLE TO VERBAL STIMULI. CONTINUE TO MONITOR CLOSELY.
--- NOTE | 2016-12-14 05:18 | NUR ---
PT AWAKE, ALERT, ORIENTED, DID RECEIVE THE DULCOLAX SUPP THIS TIME ALONG WITH PRN DILAUDID. PT DENIES ANY OTHER NEEDS. WILL CONTINUE TO MONITOR CLOSELY.
[2016-12-14 05:24] LABS: BASOPHILS 0.2 % (0-2); HEMATOCRIT 29.6 % (42.0-54.0); HEMOGLOBIN 9.2 g/dL (13.5-17.5); IMMATURE GRANULOCYTES 0.2 % (0-5); LYMPHOCYTES 13.5 % (15-50); MCH 27.6 pg (26.0-34.0); MCHC 31.1 g/dL (31.0-37.0); MCV 88.9 fL (80.0-100.0); MEAN PLATELET VOLUME 9.1 fL (7.4-10.4); MONOCYTES 15.1 % (2-11); PLATELET COUNT 224 10x3/uL (130-400); RBC 3.33 10x6/uL (4.20-6.10); RDW 14.3 % (11.5-14.5); WBC 5.1 10x3/uL (4.8-10.8)
[2016-12-14 06:04] LABS: ALKALINE PHOSPHATASE 229 U/L (46-116); ALT (SGPT) 24 U/L (10-68); BILIRUBIN - TOTAL 0.69 mg/dL (0.2-1.3); CALC OSMOLALITY 271 mosm/kg (275-300); CALCIUM 8.4 mg/dL (8.5-10.1); CARBON DIOXIDE 30.2 mmol/L (21.0-32.0); CHLORIDE - SERUM 101 mmol/L (98-107); CREATININE - SERUM 0.9 mg/dL (0.6-1.3); GLUCOSE 107 mg/dL (74-106); POTASSIUM - SERUM 3.2 mmol/L (3.5-5.1); PROTEIN - SERUM 6.3 g/dL (6.4-8.2); SODIUM 137 mmol/L (136-145); UREA NITROGEN 7 mg/dL (7-18); eGFR NON AFRICAN AMERICAN > 90 mL/min (90-120)
--- NOTE | 2016-12-14 07:24 | NUR ---
AM ROUNDING DONE WITH PAIENT IN RESTROOM AT THIS TIME. DENIES ANY NEEDS AT PRESENT. DNR CODE STATUS. FROM RESTROOM. LEFT IP SEEN WITH NS INFUSING AT 100 CC/HR ALONG WITH ZOFRAN DRIP AT 4.7. ON EP, LAB VALUES HAVE BEEN CORRECTED. WILL MONITOR.
--- NOTE | 2016-12-14 07:59 | NUR ---
COMPLAINTS OF PAIN ALL OVER 10/07. DILAUDID 2 MG GIVEN PO.
[2016-12-14 08:06] VITALS: BP 146/101
--- NOTE | 2016-12-14 10:55 | NUR ---
OLD 75 MCG DURAGESIC PATCH REMOVED FROM RIGHT POSTERIOR SHOULDER AND NEW ONE REPLACED. UNABLE TO WASTE THIS IN THE OMNICELL. THIS IS WASTED TO THE [employer] CONTAINER AND WITNESSED BY EMILY AREVALO RN.
[2016-12-14 12:17] VITALS: BP 135/92
--- NOTE | 2016-12-14 12:23 | NUR ---
COMPLAINTS OF PAIN 10/07 AGAIN. DILAUDID 2 MG GIVEN PER REQUEST.
--- NOTE | 2016-12-14 15:20 | NUR ---
DULCOLOX SUPP 20 MG GIVEN ORDERED.
--- NOTE | 2016-12-14 17:46 | NUR ---
AT BEDSIDE. STATES TO FEELING SOMEWHAT BETTER PAST SHOWER.
[2016-12-14 19:33] VITALS: BP 167/95
--- NOTE | 2016-12-14 19:52 | NUR ---
PT AWAKE, ALERT, ORIENTED, C/O GREAT ABDOMINAL PAIN 10/10 ON NUMERIC PAIN SCALE, PRN DILAUDID IS NOT LASTING LONG ENOUGH FOR BREAKTHROUGH PAIN. PT STILL HAS NOT HAD A BM, EVEN WITH THE SUPPOSITORIES. CONTINUE TO MONITOR CLOSELY.
--- NOTE | 2016-12-14 21:46 | NUR ---
NEW ORDERS FOR COLACE, MOM, AND MINERAL OIL OBTAINED FROM CARMEN RACHEL, AMBULANCE ATTENDANT FOR [facility]. PT IS NOT HAVING A GOOD NIGHT. PT IS C/O INTRACTABLE PAIN, MAINLY IN HIS ABDOMEN, THAT IS UNRELIEVED WITH ANY PRN PAIN MEDICATION AND ANTIEMETICS. PT IS STILL C/O BEING NAUSEATED WITH DRY HEAVING. AT THIS TIME, PT IS RESTING, JUST WANTING TO SLEEP. I HAVE A COLD RAG ON PTS HEAD. WILL CONTINUE TO MONITOR CLOSELY.
--- NOTE | 2016-12-14 22:28 | NUR ---
K-PAD REMOVED FROM PTS ROOM R/T IT NOT WORKING.
[2016-12-15 00:30] VITALS: BP 113/86
--- NOTE | 2016-12-15 01:19 | NUR ---
PT IS RESTING COMFORTABLY AT THIS TIME, EYES CLOSED, RESPIRATIONS EVEN AND UNLABORED. CONTINUE TO MONITOR CLOSELY. BED LOW, CALL LIGHT IN REACH, SIDE RAILS X 2, HOB 30 DEGREES.
--- NOTE | 2016-12-15 04:33 | NUR ---
PT AWAKE, ALERT, ORIENTED @ 0300 THIS MORNING. HE WANTED TO WALK AROUND THE UNIT. WE DID ONE LAP, IN WHICH PT BECAME DYSPNEIC, BUT WAS ABLE TO DO ONE COMPLETE LAP WITH NO ASSISTANCE. PT HAD AUDIBLE WHEEZING AFTER WALKING WELL. PT HAS BEEN RESTING COMFORTABLY UNTIL THIS TIME, BEING ABLE TO SLEEP. I HAVE ENCOURAGED PT TO WALK MORE DURING THE DAY, AND HAVE ENCOURAGED PT TO DO DEEP BREATHING EXERCISES TO EXPAND HIS LUNGS. PT DOES NOT HAVE AUDIBLE WHEEZING WHILE RESTING/SLEEPING. PT IS NOW AGAIN RESTING COMFORTABLY AFTER HIS PRN MEDS. WILL CONTINUE TO MONITOR PT CLOSELY.
[2016-12-15 04:49] VITALS: BP 132/84
[2016-12-15 05:58] LABS: BASOPHILS 0.2 % (0-2); EOSINOPHILS 2.4 % (0-7); HEMATOCRIT 28.8 % (42.0-54.0); HEMOGLOBIN 9.1 g/dL (13.5-17.5); IMMATURE GRANULOCYTES 0.2 % (0-5); LYMPHOCYTES 16.5 % (15-50); MCH 28.1 pg (26.0-34.0); MCHC 31.6 g/dL (31.0-37.0); MCV 88.9 fL (80.0-100.0); MEAN PLATELET VOLUME 9.7 fL (7.4-10.4); MONOCYTES 15.9 % (2-11); NEUTROPHILS 64.8 % (40-80); PLATELET COUNT 225 10x3/uL (130-400); RBC 3.24 10x6/uL (4.20-6.10); RDW 14.5 % (11.5-14.5)
[2016-12-15 06:20] LABS: CALC OSMOLALITY 271 mosm/kg (275-300); CALCIUM 8.7 mg/dL (8.5-10.1); CARBON DIOXIDE 33.5 mmol/L (21.0-32.0); CHLORIDE - SERUM 102 mmol/L (98-107); CREATININE - SERUM 0.9 mg/dL (0.6-1.3); GLUCOSE 90 mg/dL (74-106); POTASSIUM - SERUM 3.3 mmol/L (3.5-5.1); SODIUM 137 mmol/L (136-145); UREA NITROGEN 7 mg/dL (7-18); eGFR NON AFRICAN AMERICAN > 90 mL/min (90-120)
--- NOTE | 2016-12-15 07:00 | NUR ---
AM ROUNDING DONE WITH PATIENT REPORTING THAT HE HAS SLEPT BETTER LAST NIGHT, EVEN WALKED AROUND THE NURSE STATION. LEFT IP SEEN WITH NS INFUSING AT 100 CC/HR. ON ROOM AIR. EP WITH LABS BEING SUPPLEMENTED PER PROTOCOL. PAIN PATCH TO RIGHT SHOULDER AREA WITH 12/14/16 DATE TO IT. WILL MONITOR.
[2016-12-15 08:11] VITALS: BP 137/100
--- NOTE | 2016-12-15 09:07 | NUR ---
COMPLAINTS OF PAIN 8/[address] GRAHAM HERE TO SEE PATIENT WITH NEW ORDERS. DILAUDID 2 MG GIVEN PER PATIENT REQUEST.
--- NOTE | 2016-12-15 10:24 | NUR ---
Nutrition Follow Up: Pt is eating 58% meal avg on a regular diet. Noted per chart pt with increased pain and constipation. +BM 12/09/16. Meds and labs reviewed. Rec continue current diet. Will continue to provide selective menus and honor food preferences. RD following.
--- NOTE | 2016-12-15 10:26 | NUR ---
FLEET ENEMA GIVEN ORDERED IN NURSE MESSAGE
--- NOTE | 2016-12-15 11:05 | NUR ---
RE-CHECK OF POTASSIUM WITH RESULTS OF 3.5.
[2016-12-15 12:14] VITALS: BP 149/93
--- NOTE | 2016-12-15 12:22 | NUR ---
PATIENT SEEMS TO RESTING EASILY NOW WITH RESP EVEN AND NON LABORED. MALE MEMBER IN ROOM NOW.
--- NOTE | 2016-12-15 13:36 | NUR ---
RECIEVED REPORT ON PATIENT, PATIENT IS SLEEPING AT THIS TIME, NAD NOTED. PATIENT HAS A L CHEST IP WITH NS INFUSING AT 100ML/HR. PATIENT BED IS LOW AND LOCKED AT THIS TIME. CALL LIGHT IN REACH. WILL CONT TO MONITOR PATIENT. CPOC
[2016-12-15 15:55] VITALS: BP 154/89
--- NOTE | 2016-12-15 17:02 | NUR ---
PATIENT AMBULATING AROUND HALLWAY. DENIES ANY NEEDS. CPOC
--- NOTE | 2016-12-15 18:36 | NUR ---
PATIENT RESTING IN BED, AROUSES TO VOICE. DENIES ANY NEEDS AT THIS TIME. BED LOW AND LOCKED. CALL LIGHT IN REACH. CPOC
[2016-12-15 19:00] VITALS: BP 163/103
--- NOTE | 2016-12-15 19:44 | NUR ---
PT LYING IN BED, RESTING COMFORTABLY, C/O ABDOMINAL PAIN AT A 7/10. PT DENIES ANY NEEDS. CONTINUE TO MONITOR CLOSELY.
[2016-12-16] VITALS: BP 138/94
--- NOTE | 2016-12-16 00:07 | NUR ---
PT CALLED AROUND 22:00, REQUESTING A CUP OF CHICKEN NOODLE SOUP, IN WHICH HE ATE ALL OF IT. PT STATES HE TOLERATED IT WELL, IS HAVING GAS, STILL NO BM. PT STATES HE WILL WALK AFTER HE RESTS. WILL CONTINUE TO MONITOR CLOSELY.
--- NOTE | 2016-12-16 01:26 | NUR ---
PT CALLED FOR PRN DILAUDID. PT STATES HIS ABDOMINAL PAIN STAYS AT 7 AT ALL TIMES. NO OTHER NEEDS. CONTINUE TO MONITOR CLOSELY.
[2016-12-16 04:00] VITALS: BP 147/91
--- NOTE | 2016-12-16 05:21 | NUR ---
PT SHOWERED AND AMBULATED AROUND THE UNIT X 1 HOLDING HIS IV POLE. I WALKED BESIDE HIM, HOWEVER PT DID NOT REQUIRE ANY ASSISTANCE. PT HAS ALSO BEEN DRINKING WELL THIS SHIFT AND HAS EATEN A POPSICLE. PT IS CURRENTLY RESTING COMFORTABLY AT THIS TIME. CONTINUE TO MONITOR CLOSELY.
--- NOTE | 2016-12-16 07:29 | NUR ---
RECIEVED REPORT ONPATIENT, PATIENT IS ALERT AND ORIENTED AT THIS TIME. PATIENT HAS A L CHEST IP WITH NS AT 100ML/HR. PATIENT IS ON ROOM AIR, NAD NOTED. PATIENT DENIES ANY NEEDS AT THIS TIME. BED LOW AND LOCKED. CPOC. CALL LIGHT IN REACH.
[2016-12-16 07:46] VITALS: BP 151/95
--- NOTE | 2016-12-16 09:24 | NUR ---
MORNING MEDICATIONS GIVEN WITH NO ISSUES. BED LOW AND LOCKED. CPOC
--- NOTE | 2016-12-16 09:50 | NUR ---
PATIENT AMBULATING HALLWAY.
--- NOTE | 2016-12-16 10:20 | NUR ---
PATIENT HAD A BM, STATES IT WAS DIARRHEA, BUT DID HAVE QUITE A BIT. WILL NOTIFY DR. MACARIO
[2016-12-16 10:32] LABS: BASOPHILS 0.2 % (0-2); EOSINOPHILS 2.5 % (0-7); HEMATOCRIT 29.9 % (42.0-54.0); HEMOGLOBIN 9.3 g/dL (13.5-17.5); IMMATURE GRANULOCYTES 0.2 % (0-5); LYMPHOCYTES 12.3 % (15-50); MCH 27.7 pg (26.0-34.0); MCHC 31.1 g/dL (31.0-37.0); MEAN PLATELET VOLUME 8.9 fL (7.4-10.4); MONOCYTES 12.3 % (2-11); NEUTROPHILS 72.5 % (40-80); PLATELET COUNT 215 10x3/uL (130-400); RBC 3.36 10x6/uL (4.20-6.10); RDW 14.7 % (11.5-14.5); WBC 5.7 10x3/uL (4.8-10.8)
[2016-12-16 10:50] LABS: ALBUMIN 2.1 g/dL (3.4-5.0); ALKALINE PHOSPHATASE 317 U/L (46-116); ALT (SGPT) 29 U/L (10-68); BILIRUBIN - TOTAL 0.43 mg/dL (0.2-1.3); CALC OSMOLALITY 278 mosm/kg (275-300); CARBON DIOXIDE 31.7 mmol/L (21.0-32.0); CHLORIDE - SERUM 104 mmol/L (98-107); GLUCOSE 105 mg/dL (74-106); POTASSIUM - SERUM 3.4 mmol/L (3.5-5.1); PROTEIN - SERUM 6.6 g/dL (6.4-8.2); SODIUM 141 mmol/L (136-145); UREA NITROGEN 7 mg/dL (7-18); eGFR NON AFRICAN AMERICAN 83 mL/min (90-120)
[2016-12-16 11:10] LABS: CALCIUM 8.6 mg/dL (8.5-10.1)
[2016-12-16 12:00] VITALS: BP 159/101
--- NOTE | 2016-12-16 12:15 | NUR ---
PATIENT STATED HE HAD ANOTHER BM, SOFT WITH A LITTLE BIT OF DIARRHEA. CARMEN RACHEL NOTIFIED. CPOC
--- NOTE | 2016-12-16 13:00 | NUR ---
PATIENT AMBULATING HALLWAY. CPOC
[2016-12-16] MEDS ORDERED: LINZESS145 MCG PO (13:30)
[2016-12-16] MEDS ORDERED: COLACE100 MG PO (13:30)
[2016-12-16] MEDS ORDERED: CARAFATE1 G PO (13:31)
[2016-12-16] MEDS ORDERED: PHENERGAN25 M1 PO (13:34)
[2016-12-16] MEDS ORDERED: DURAGESIC1 PATCH .2 TRANSDERM (13:35)
[2016-12-16] MEDS ORDERED: DILAUDID2 MG PO (13:35)
[2016-12-16] MEDS ORDERED: PROTONIX40 MG PO (13:36)
--- NOTE | 2016-12-16 15:59 | NUR ---
PATIENT SIGNED DC PAPERWORK. INSTUCTIONS GIVEN. PORT DEACCESSED. HEPARIN FLUSHED. PATIENT DENIES ANY QUESTIONS. BROTHER HERE FOR DC. CPOC
== END 2016-12-16 16:16 | disposition home or self-care (01) | DRG 674 ==
LOC: D.ER 04:46 → D.M2 07:46
PROVIDERS: Family Medicine; General Practice; Internal Medicine Hematology & Oncology; Surgery; ADMIT Family Medicine
PROC: 02HV33Z Insertion of Infusion Device into Superior Vena Cava, Percutaneous Approach (ICD-10-PCS; 2016-12-08)
PROC: B5181ZA Fluoroscopy of Superior Vena Cava using Low Osmolar Contrast, Guidance (ICD-10-PCS; 2016-12-08)
PROC: 0JH60WZ Insertion of Totally Implantable Vascular Access Device into Chest Subcutaneous Tissue and Fascia, Open Approach (ICD-10-PCS; principal; 2016-12-08 14:00)
PROC: 07BD3ZX Excision of Aortic Lymphatic, Percutaneous Approach, Diagnostic (ICD-10-PCS; 2016-12-10)
DX: C64.2 Malignant neoplasm of left kidney, except renal pelvis (principal); C79.11 Secondary malignant neoplasm of bladder; N12 Tubulo-interstitial nephritis, not specified as acute or chronic; C79.51 Secondary malignant neoplasm of bone; C64.1 Malignant neoplasm of right kidney, except renal pelvis; G47.00 Insomnia, unspecified; I10 Essential (primary) hypertension; D50.0 Iron deficiency anemia secondary to blood loss (chronic); E87.6 Hypokalemia; K59.00 Constipation, unspecified

== ENCOUNTER 2016-12-16 23:07 | Emergency (ER) | payer BC ==
[~2016-12-16 23:07] MED LIST: CARAFATE1 G PO; COLACE100 MG PO; DILAUDID2 MG PO; DURAGESIC1 PATCH .2 TRANSDERM; HYDROCODONE-APA1 TAB PO; LEVAQUIN500 MG PO; LINZESS145 MCG PO; MORPHINE IMMEDI15 MG PO; PERCOCET 5-3251 TAB PO; PHENERGAN25 M1 PO; PROTONIX40 MG PO; ULTRAM50 MG PO
== END 2016-12-17 00:36 | disposition home or self-care (01) ==
LOC: D.ER 23:07
DX: M54.5 Low back pain (principal)